=== PATIENT | female | born 1945 | race Caucasian/White ===

== ENCOUNTER 2020-10-25 14:45 | Inpatient (IN) ==
[2020-10-25 17:40] LABS: Basophils # 0.1 10*3/uL (0.0-0.2); Basophils % 0.8 % (0.0-0.8); Eosinophils # 0.2 10*3/uL (0.0-0.87); Eosinophils % 1.8 % (0.00-10.9); Hematocrit 30.6 VOL% (35.7-47.0); Hemoglobin 9.2 GM/DL (12.0-16.0); Immature Granulocytes % 0.8 %; Immature Granulocytes Absolute 0.11 #; Lymphocytes # 2.7 10*3/uL (1.4-4.0); Lymphocytes % 20.2 % (21.3-54.2); Mean Corpuscular HGB Conc 30.1 GM/DL (32-36); Mean Corpuscular Volume 80.3 FL (87-102); NRBC # 0.03 10*3/uL; Neutrophils % 67.4 % (38.7-73.9); Platelet Count 444 T/CUMM (130-400); Red Blood Count 3.81 MC/CUMM (3.8-5.5); Red Cell Distribution Width 14.6 % (9.3-17.3); White Blood Count 13.2 T/CUMM (4-12)
[2020-10-25 17:59] LABS: Albumin 4.4 G/DL (3.4-5.0); Bilirubin,Total 0.4 MG/DL (0.2-1.0); Calcium 9.6 MG/DL (8.5-10.1); Osmolality,Calculated 275.8 MOS/KG (273-304); Potassium 3.5 MMOL/L (3.5-5.1); Total Protein 8.5 G/DL (6.4-8.2)
[2020-10-25] MEDS ORDERED: MECLIZINE 25 MG TABLET PO STA (18:22)
[2020-10-25] MEDS ORDERED: ONDANSETRON 4 MG/2 ML VIAL IV STA (18:22)
[2020-10-25] MEDS ORDERED: SODIUM CHLORIDE 0.9% 500 ML IV STA (18:22)
[2020-10-25 18:41] LABS: Amylase 89 U/L (25-115)
[2020-10-25] MEDS ORDERED: PIPERACILLIN/TAZOBACTAM 3,375 MG in SODIUM CHLORIDE 0.9% 100 ML IV STA (19:30)
[2020-10-25] MEDS ORDERED: SODIUM CHLORIDE 0.9% 1,000 ML IV STA (19:30)
[2020-10-25] MEDS ORDERED: methylPREDNISolone SOD SUC 125 MG/2 ML VIAL IV STA (19:39)
[2020-10-25] MEDS ORDERED: ALBUTEROL/IPRATROPIUM 3 ML NEB RESP TX STA (19:39)
[2020-10-25] MEDS ORDERED: DEXTROSE 50% 25 GM/50 ML VIAL IV PRN ×2 (20:13)
[2020-10-25] MEDS ORDERED: GLUCAGON 1 MG VIAL IM PRN ×2 (20:13)
[2020-10-25] MEDS ORDERED: ALBUTEROL/IPRATROPIUM 3 ML NEB RESP TX PRN (20:13)
[2020-10-25] MEDS ORDERED: ONDANSETRON 4 MG/2 ML VIAL IV PRN (20:13)
[2020-10-25 20:25] LABS: Bilirubin,Urine Negative (Negative); Blood, Urine Negative (Negative); Calcium Oxalate Crystals,Urine Many /HPF (Few); Glucose,Urine (UA) Negative (Negative); Hyaline Casts,Urine 65 /LPF (0-3); Ketones,Urine Negative (Negative); Mucus,Urine Few /LPF (Occasional); Nitrite,Urine Negative (Negative); Protein,Urine Negative; RBC,Urine 7 /HPF (0-4); Squamous Epithelial Cell,Urine Occasional /HPF (0-10); Urine Appearance Slightly Hazy (Clear); Urine Color Yellow (Yellow); Urine Specific Gravity 1.014 (1.001-1.035); Urine Urobilinogen < 2.0 EU/DL (0.2-1.0)
[2020-10-25] MEDS ORDERED: cefTRIAXone 1,000 MG in SODIUM CHLORIDE 0.9% 100 ML IV SCH (21:00)
[2020-10-25] MEDS: INSULIN LISPRO 100 UNIT/ML SUBCUT SCH (23:11)
[2020-10-25] MEDS: ENOXAPARIN 40 MG/0.4 ML SYRINGE SUBCUT SCH (23:11)
[2020-10-25] MEDS: SIMVASTATIN 20 MG TABLET PO SCH (23:12)
[2020-10-25] MEDS: DONEPEZIL 10 MG TABLET PO SCH (23:12)
[2020-10-25] MEDS: SODIUM CHLOR 0.9% KCL 20 MEQ 20 MEQ/1,000 ML BAG IV SCH (23:14)
[2020-10-26] MEDS ORDERED: PHENOL 1.4% THROAT SPRAY 177 ML BOTTLE PO PRN (05:44)
[2020-10-26 06:14] LABS: Basophils % 0.4 % (0.0-0.8); Hematocrit 25.1 VOL% (35.7-47.0); Hemoglobin 7.5 GM/DL (12.0-16.0); Immature Granulocytes % 1.1 %; Immature Granulocytes Absolute 0.09 #; Lymphocytes # 0.5 10*3/uL (1.4-4.0); Lymphocytes % 5.4 % (21.3-54.2); Mean Corpuscular HGB Conc 29.9 GM/DL (32-36); Mean Corpuscular Volume 81.8 FL (87-102); Mean Platelet Volume 8.4 FL (9.6-12.0); Monocytes % 0.7 % (1.7-12.7); Neutrophils % 92.4 % (38.7-73.9); Platelet Count 321 T/CUMM (130-400); Red Blood Count 3.07 MC/CUMM (3.8-5.5); Red Cell Distribution Width 14.6 % (9.3-17.3); White Blood Count 8.4 T/CUMM (4-12)
[2020-10-26 06:37] LABS: Calcium 8.8 MG/DL (8.5-10.1); Osmolality,Calculated 281.5 MOS/KG (273-304); Potassium 4.3 MMOL/L (3.5-5.1)
[2020-10-26 06:39] LABS: Hypochromasia 2+; Lymphocytes 6 % (20-55); Microcytosis 1+; Platelet Estimate Adequate; Segmented Neutrophils 94 % (50-85); Total Cells Counted 100
[2020-10-26 08:33] LABS: Ferritin 9.7 ng/ml (8-252)
[2020-10-26] MEDS ORDERED: SODIUM CHLORIDE 0.9% 1,000 ML IV PRN (08:46)
[2020-10-26] MEDS ORDERED: hydroCHLOROthiazide 12.5 MG CAPSULE PO SCH (09:00)
[2020-10-26 09:24] LABS: Basophils % 0.2 % (0.0-0.8); Hematocrit 25.5 VOL% (35.7-47.0); Hemoglobin 7.5 GM/DL (12.0-16.0); Immature Granulocytes % 1.3 %; Immature Granulocytes Absolute 0.11 #; Lymphocytes # 0.6 10*3/uL (1.4-4.0); Lymphocytes % 6.7 % (21.3-54.2); Mean Corpuscular HGB Conc 29.4 GM/DL (32-36); Mean Corpuscular Volume 83.1 FL (87-102); Mean Platelet Volume 9.4 FL (9.6-12.0); Monocytes % 0.5 % (1.7-12.7); NRBC # 0.02 10*3/uL; Neutrophils % 91.3 % (38.7-73.9); Platelet Count 251 T/CUMM (130-400); Red Blood Count 3.07 MC/CUMM (3.8-5.5); Red Cell Distribution Width 14.6 % (9.3-17.3); White Blood Count 8.4 T/CUMM (4-12)
[2020-10-26 09:43] LABS: % Iron Saturation 4.1 % (18-50)
[2020-10-26 09:48] LABS: Lymphocytes 6 % (20-55); Platelet Estimate Adequate; Segmented Neutrophils 94 % (50-85); Total Cells Counted 100
[2020-10-26 09:49] LABS: Hypochromasia 1+; Microcytosis 1+
[2020-10-26 09:52] LABS: Folate 14.15 NG/ML (5.38-24.0); Vitamin B12 338 PG/ML (211-911)
[2020-10-26] MEDS: FENOFIBRATE 145 MG TABLET PO SCH (09:59)
[2020-10-26] MEDS: MAGNESIUM OXIDE 400 MG TABLET PO SCH (09:59)
[2020-10-26] MEDS: amLODIPine 5 MG TABLET PO SCH (09:59)
[2020-10-26] MEDS: predniSONE 5 MG TABLET PO SCH (09:59)
[2020-10-26] MEDS: PANTOPRAZOLE 40 MG TABLET PO SCH (09:59)
[2020-10-26] MEDS: INSULIN LISPRO 100 UNIT/ML SUBCUT SCH ×4 (10:00→22:02)
[2020-10-26] MEDS: POTASSIUM GLUCONATE 500 MG TABLET PO SCH (10:00)
[2020-10-26 10:27] LABS: Sedimentation Rate-Westergren 25 MM/HR (0-30)
[2020-10-26] MEDS: SODIUM CHLOR 0.9% KCL 20 MEQ 20 MEQ/1,000 ML BAG IV SCH ×2 (18:43→22:02)
[2020-10-26] MEDS: ENOXAPARIN 40 MG/0.4 ML SYRINGE SUBCUT SCH (22:02)
[2020-10-26] MEDS: FERROUS SULFATE 325 MG TABLET PO SCH (22:02)
[2020-10-26] MEDS: DONEPEZIL 10 MG TABLET PO SCH (22:02)
[2020-10-26] MEDS: SIMVASTATIN 20 MG TABLET PO SCH (22:02)
[2020-10-27] MEDS: SODIUM CHLOR 0.9% KCL 20 MEQ 20 MEQ/1,000 ML BAG IV SCH ×2 (00:21→06:19)
[2020-10-27 06:28] LABS: Basophils % 0.2 % (0.0-0.8); Hematocrit 32.2 VOL% (35.7-47.0); Immature Granulocytes % 1.6 %; Immature Granulocytes Absolute 0.28 #; Lymphocytes # 1.3 10*3/uL (1.4-4.0); Lymphocytes % 7.4 % (21.3-54.2); Mean Corpuscular HGB Conc 30.4 GM/DL (32-36); Mean Corpuscular Volume 83.2 FL (87-102); Mean Platelet Volume 8.7 FL (9.6-12.0); Monocytes % 7.3 % (1.7-12.7); NRBC # 0.06 10*3/uL; Neutrophils % 83.5 % (38.7-73.9); Red Cell Distribution Width 15.5 % (9.3-17.3)
[2020-10-27 06:29] LABS: Hemoglobin 9.8 GM/DL (12.0-16.0); Red Blood Count 3.87 MC/CUMM (3.8-5.5); White Blood Count 17.9 T/CUMM (4-12)
[2020-10-27 06:30] LABS: Platelet Count 361 T/CUMM (130-400)
[2020-10-27 06:38] LABS: Calcium 8.6 MG/DL (8.5-10.1); Osmolality,Calculated 277.5 MOS/KG (273-304); Potassium 4.1 MMOL/L (3.5-5.1)
[2020-10-27] MEDS: INSULIN LISPRO 100 UNIT/ML SUBCUT SCH ×4 (08:42→21:18)
[2020-10-27] MEDS: FERROUS SULFATE 325 MG TABLET PO SCH ×2 (09:54→21:17)
[2020-10-27] MEDS: POTASSIUM GLUCONATE 500 MG TABLET PO SCH (09:54)
[2020-10-27] MEDS: amLODIPine 5 MG TABLET PO SCH (09:54)
[2020-10-27] MEDS: MAGNESIUM OXIDE 400 MG TABLET PO SCH (09:54)
[2020-10-27] MEDS: predniSONE 5 MG TABLET PO SCH (09:54)
[2020-10-27] MEDS: PANTOPRAZOLE 40 MG TABLET PO SCH (09:54)
[2020-10-27] MEDS: FENOFIBRATE 145 MG TABLET PO SCH (09:54)
[2020-10-27 10:13] LABS: Hemoglobin A1 (Alkaline) 97.4 % (96.5-98.5); Hemoglobin A2 (Alkaline) 2.6 % (1.5-3.5)
[2020-10-27] MEDS: ACETAMINOPHEN 325 MG TABLET PO PRN (14:57)
[2020-10-27] MEDS: cefTRIAXone 1,000 MG VIAL IM SCH (21:17)
[2020-10-27] MEDS: DONEPEZIL 10 MG TABLET PO SCH (21:17)
[2020-10-27] MEDS: SIMVASTATIN 20 MG TABLET PO SCH (21:17)
[2020-10-28 06:42] LABS: Basophils % 0.2 % (0.0-0.8); Eosinophils % 0.3 % (0.00-10.9); Hematocrit 31.3 VOL% (35.7-47.0); Hemoglobin 9.8 GM/DL (12.0-16.0); Immature Granulocytes % 1.4 %; Immature Granulocytes Absolute 0.19 #; Lymphocytes # 2.1 10*3/uL (1.4-4.0); Lymphocytes % 14.9 % (21.3-54.2); Mean Corpuscular HGB Conc 31.3 GM/DL (32-36); Mean Corpuscular Volume 80.5 FL (87-102); Mean Platelet Volume 8.3 FL (9.6-12.0); Monocytes % 12.1 % (1.7-12.7); NRBC # 0.04 10*3/uL; Neutrophils % 71.1 % (38.7-73.9); Platelet Count 272 T/CUMM (130-400); Red Blood Count 3.89 MC/CUMM (3.8-5.5); Red Cell Distribution Width 15.6 % (9.3-17.3)
[2020-10-28 07:05] LABS: Calcium 8.5 MG/DL (8.5-10.1); Osmolality,Calculated 272.7 MOS/KG (273-304); Potassium 3.4 MMOL/L (3.5-5.1)
[2020-10-28] MEDS: INSULIN LISPRO 100 UNIT/ML SUBCUT SCH ×4 (08:11→20:44)
[2020-10-28] MEDS ORDERED: POTASSIUM CHLORIDE 20 MEQ TABLET PO ONE (09:00)
[2020-10-28] MEDS: POTASSIUM GLUCONATE 500 MG TABLET PO SCH (10:00)
[2020-10-28] MEDS: MAGNESIUM OXIDE 400 MG TABLET PO SCH (10:00)
[2020-10-28] MEDS: MECLIZINE 25 MG TABLET PO SCH ×3 (10:00→20:40)
[2020-10-28] MEDS: predniSONE 5 MG TABLET PO SCH (10:00)
[2020-10-28] MEDS: FENOFIBRATE 145 MG TABLET PO SCH (10:00)
[2020-10-28] MEDS: FERROUS SULFATE 325 MG TABLET PO SCH ×2 (10:01→20:40)
[2020-10-28] MEDS: ACETAMINOPHEN 325 MG TABLET PO PRN ×2 (10:01→18:09)
[2020-10-28] MEDS: amLODIPine 5 MG TABLET PO SCH (10:01)
[2020-10-28] MEDS: PANTOPRAZOLE 40 MG TABLET PO SCH (10:01)
[2020-10-28] MEDS: ALBUTEROL/IPRATROPIUM 3 ML NEB RESP TX SCH ×2 (14:00→20:28)
[2020-10-28] MEDS: CLINDAMYCIN INJ 300 MG/50 ML PREMIX IV SCH (18:09)
[2020-10-28] MEDS: SIMVASTATIN 20 MG TABLET PO SCH (20:39)
[2020-10-28] MEDS: cefTRIAXone 1,000 MG VIAL IM SCH (20:39)
[2020-10-28] MEDS: DONEPEZIL 10 MG TABLET PO SCH (20:39)
[2020-10-28] MEDS: MONTELUKAST 10 MG TABLET PO SCH (20:40)
[2020-10-29] MEDS: CLINDAMYCIN INJ 300 MG/50 ML PREMIX IV SCH ×4 (00:13→17:59)
[2020-10-29] MEDS: ALBUTEROL/IPRATROPIUM 3 ML NEB RESP TX SCH ×7 (00:33→23:43)
[2020-10-29 05:03] LABS: Basophils % 0.3 % (0.0-0.8); Eosinophils # 0.1 10*3/uL (0.0-0.87); Eosinophils % 0.7 % (0.00-10.9); Hematocrit 32.8 VOL% (35.7-47.0); Hemoglobin 10.1 GM/DL (12.0-16.0); Immature Granulocytes Absolute 0.11 #; Lymphocytes # 2.3 10*3/uL (1.4-4.0); Lymphocytes % 20.5 % (21.3-54.2); Mean Corpuscular HGB Conc 30.8 GM/DL (32-36); Mean Corpuscular Volume 81.8 FL (87-102); Mean Platelet Volume 8.6 FL (9.6-12.0); Monocytes % 10.8 % (1.7-12.7); Neutrophils % 66.7 % (38.7-73.9); Platelet Count 256 T/CUMM (130-400); Red Blood Count 4.01 MC/CUMM (3.8-5.5); Red Cell Distribution Width 15.6 % (9.3-17.3)
[2020-10-29 05:19] LABS: Calcium 8.6 MG/DL (8.5-10.1); Osmolality,Calculated 277.4 MOS/KG (273-304); Potassium 3.2 MMOL/L (3.5-5.1)
[2020-10-29] MEDS ORDERED: POTASSIUM CHLORIDE 20 MEQ TABLET PO ONE (07:45)
[2020-10-29] MEDS: INSULIN LISPRO 100 UNIT/ML SUBCUT SCH ×4 (09:02→21:25)
[2020-10-29] MEDS: FENOFIBRATE 145 MG TABLET PO SCH (09:17)
[2020-10-29] MEDS: POTASSIUM GLUCONATE 500 MG TABLET PO SCH (09:17)
[2020-10-29] MEDS: PANTOPRAZOLE 40 MG TABLET PO SCH (09:17)
[2020-10-29] MEDS: MONTELUKAST 10 MG TABLET PO SCH (09:17)
[2020-10-29] MEDS: predniSONE 5 MG TABLET PO SCH (09:18)
[2020-10-29] MEDS: MAGNESIUM OXIDE 400 MG TABLET PO SCH (09:18)
[2020-10-29] MEDS: amLODIPine 5 MG TABLET PO SCH (09:18)
[2020-10-29] MEDS: FERROUS SULFATE 325 MG TABLET PO SCH ×2 (09:18→21:25)
[2020-10-29] MEDS: MECLIZINE 25 MG TABLET PO SCH ×3 (09:18→21:18)
[2020-10-29] MEDS ORDERED: LIDOCAINE 1% 20 ML VIAL IM PRN (21:06)
[2020-10-29] MEDS: SIMVASTATIN 20 MG TABLET PO SCH (21:18)
[2020-10-29] MEDS: cefTRIAXone 1,000 MG VIAL IM SCH (21:22)
[2020-10-29] MEDS: DONEPEZIL 10 MG TABLET PO SCH (21:25)
[2020-10-30] MEDS: CLINDAMYCIN INJ 300 MG/50 ML PREMIX IV SCH ×4 (00:17→21:30)
[2020-10-30] MEDS: ALBUTEROL/IPRATROPIUM 3 ML NEB RESP TX SCH ×6 (03:00→23:00)
[2020-10-30 04:42] LABS: Basophils # 0.1 10*3/uL (0.0-0.2); Basophils % 0.5 % (0.0-0.8); Eosinophils # 0.2 10*3/uL (0.0-0.87); Eosinophils % 2.3 % (0.00-10.9); Hematocrit 31.2 VOL% (35.7-47.0); Hemoglobin 9.6 GM/DL (12.0-16.0); Immature Granulocytes % 0.7 %; Immature Granulocytes Absolute 0.07 #; Lymphocytes # 2.2 10*3/uL (1.4-4.0); Lymphocytes % 22.7 % (21.3-54.2); Mean Corpuscular HGB Conc 30.8 GM/DL (32-36); Mean Corpuscular Volume 82.1 FL (87-102); Mean Platelet Volume 8.8 FL (9.6-12.0); Monocytes % 10.6 % (1.7-12.7); Neutrophils % 63.2 % (38.7-73.9); Platelet Count 267 T/CUMM (130-400); Red Cell Distribution Width 15.6 % (9.3-17.3); White Blood Count 9.6 T/CUMM (4-12)
[2020-10-30 05:03] LABS: Calcium 8.4 MG/DL (8.5-10.1); Osmolality,Calculated 277.4 MOS/KG (273-304); Potassium 3.5 MMOL/L (3.5-5.1)
[2020-10-30] MEDS: INSULIN LISPRO 100 UNIT/ML SUBCUT SCH ×4 (08:22→22:38)
[2020-10-30] MEDS: MAGNESIUM OXIDE 400 MG TABLET PO SCH (09:56)
[2020-10-30] MEDS: FENOFIBRATE 145 MG TABLET PO SCH (09:56)
[2020-10-30] MEDS: predniSONE 5 MG TABLET PO SCH (09:57)
[2020-10-30] MEDS: MECLIZINE 25 MG TABLET PO SCH ×3 (09:57→21:30)
[2020-10-30] MEDS: POTASSIUM GLUCONATE 500 MG TABLET PO SCH (09:57)
[2020-10-30] MEDS: PANTOPRAZOLE 40 MG TABLET PO SCH (09:57)
[2020-10-30] MEDS: FERROUS SULFATE 325 MG TABLET PO SCH ×2 (09:57→21:31)
[2020-10-30] MEDS: amLODIPine 5 MG TABLET PO SCH (09:57)
[2020-10-30] MEDS: MONTELUKAST 10 MG TABLET PO SCH (09:57)
[2020-10-30] MEDS: SIMVASTATIN 20 MG TABLET PO SCH (21:30)
[2020-10-30] MEDS: DONEPEZIL 10 MG TABLET PO SCH (21:31)
[2020-10-30] MEDS: cefTRIAXone 1,000 MG VIAL IM SCH (21:33)
[2020-10-31] MEDS: ALBUTEROL/IPRATROPIUM 3 ML NEB RESP TX SCH ×3 (03:00→11:07)
[2020-10-31] MEDS: ACETAMINOPHEN 325 MG TABLET PO PRN (03:35)
[2020-10-31] MEDS: CLINDAMYCIN INJ 300 MG/50 ML PREMIX IV SCH ×2 (03:36→08:34)
[2020-10-31 04:46] LABS: Basophils % 0.4 % (0.0-0.8); Eosinophils # 0.3 10*3/uL (0.0-0.87); Eosinophils % 3.3 % (0.00-10.9); Hematocrit 30.6 VOL% (35.7-47.0); Hemoglobin 9.6 GM/DL (12.0-16.0); Immature Granulocytes % 0.7 %; Immature Granulocytes Absolute 0.07 #; Lymphocytes # 2.3 10*3/uL (1.4-4.0); Mean Corpuscular HGB Conc 31.4 GM/DL (32-36); Mean Corpuscular Volume 81.4 FL (87-102); Mean Platelet Volume 8.5 FL (9.6-12.0); Monocytes % 10.3 % (1.7-12.7); Neutrophils % 61.3 % (38.7-73.9); Platelet Count 251 T/CUMM (130-400); Red Blood Count 3.76 MC/CUMM (3.8-5.5); Red Cell Distribution Width 16.3 % (9.3-17.3); White Blood Count 9.7 T/CUMM (4-12)
[2020-10-31 04:59] LABS: Calcium 8.6 MG/DL (8.5-10.1); Osmolality,Calculated 281.1 MOS/KG (273-304); Potassium 3.5 MMOL/L (3.5-5.1)
[2020-10-31] MEDS: POTASSIUM GLUCONATE 500 MG TABLET PO SCH (08:34)
[2020-10-31] MEDS: MAGNESIUM OXIDE 400 MG TABLET PO SCH (08:34)
[2020-10-31] MEDS: MECLIZINE 25 MG TABLET PO SCH (08:34)
[2020-10-31] MEDS: FENOFIBRATE 145 MG TABLET PO SCH (08:34)
[2020-10-31] MEDS: predniSONE 5 MG TABLET PO SCH (08:34)
[2020-10-31] MEDS: MONTELUKAST 10 MG TABLET PO SCH (08:34)
[2020-10-31] MEDS: PANTOPRAZOLE 40 MG TABLET PO SCH (08:34)
[2020-10-31] MEDS: INSULIN LISPRO 100 UNIT/ML SUBCUT SCH ×2 (08:35→11:53)
[2020-10-31] MEDS: amLODIPine 5 MG TABLET PO SCH (08:35)
[2020-10-31] MEDS: FERROUS SULFATE 325 MG TABLET PO SCH (08:35)
[2020-10-31 11:37] VITALS: BP 122/42
[2020-11-01] MEDS ORDERED: ERGOCALCIFEROL 50,000 UNIT CAPSULE PO SCH (09:00)
== END 2020-10-31 13:20 | disposition home or self-care (01) | DRG 391 ==
LOC: N.EDINP 14:45 → N.ED 14:45 → N.4E 22:09 → SUATTDRO 10-26 13:30
PROVIDERS: ADMIT Internal Medicine; ATTEND Student in an Organized Health Care Education/Training Program

== ENCOUNTER 2020-11-15 16:55 | Inpatient (IN) ==
[2020-11-15] MEDS ORDERED: ALBUTEROL/IPRATROPIUM 3 ML NEB RESP TX STA (17:54)
[2020-11-15] MEDS ORDERED: methylPREDNISolone SOD SUC 40 MG/1 ML VIAL IV STA (17:54)
[2020-11-15] MEDS ORDERED: SODIUM CHLORIDE 0.9% 500 ML IV STA (17:54)
[2020-11-15] MEDS ORDERED: methylPREDNISolone SOD SUC 125 MG/2 ML VIAL ONE (18:02)
[2020-11-15 18:18] LABS: Albumin 3.5 G/DL (3.4-5.0); Bilirubin,Total 0.4 MG/DL (0.2-1.0); Calcium 8.5 MG/DL (8.5-10.1); Osmolality,Calculated 277.4 MOS/KG (273-304); Potassium 2.8 MMOL/L (3.5-5.1); Total Protein 7.5 G/DL (6.4-8.2)
[2020-11-15 18:26] LABS: Basophils % 0.7 % (0.0-0.8); Eosinophils # 0.1 10*3/uL (0.0-0.87); Eosinophils % 2.1 % (0.00-10.9); Hematocrit 32.1 VOL% (35.7-47.0); Hemoglobin 10.5 GM/DL (12.0-16.0); Immature Granulocytes % 0.7 %; Immature Granulocytes Absolute 0.04 #; Lymphocytes # 1.7 10*3/uL (1.4-4.0); Lymphocytes % 29.7 % (21.3-54.2); Mean Corpuscular HGB Conc 32.7 GM/DL (32-36); Mean Corpuscular Volume 81.3 FL (87-102); Mean Platelet Volume 8.9 FL (9.6-12.0); Monocytes % 15.1 % (1.7-12.7); Neutrophils % 51.7 % (38.7-73.9); Platelet Count 298 T/CUMM (130-400); Red Blood Count 3.95 MC/CUMM (3.8-5.5); Red Cell Distribution Width 17.6 % (9.3-17.3); White Blood Count 5.7 T/CUMM (4-12)
[2020-11-15 18:30] LABS: Bacteria,Urine Occasional /HPF (Few); Bilirubin,Urine Negative (Negative); Blood, Urine Moderate mg/dL (Negative); Glucose,Urine (UA) Negative (Negative); Hyaline Casts,Urine 15 /LPF (0-3); Ketones,Urine Negative (Negative); Mucus,Urine Occasional /LPF (Occasional); Nitrite,Urine Negative (Negative); Protein,Urine 100 MG/DL; Urine Appearance CLEAR (Clear); Urine Color Yellow (Yellow); Urine Specific Gravity 1.016 (1.001-1.035); Urine Urobilinogen < 2.0 EU/DL (0.2-1.0)
[2020-11-15] MEDS ORDERED: ALBUTEROL 2.5 MG/3 ML NEB RESP TX PRN (20:05)
[2020-11-15] MEDS ORDERED: GLUCAGON 1 MG VIAL IM PRN (20:13)
[2020-11-15] MEDS ORDERED: DEXTROSE 50% 25 GM/50 ML VIAL IV PRN (20:13)
[2020-11-15] MEDS ORDERED: ACETAMINOPHEN 325 MG TABLET PO PRN (20:14)
[2020-11-15] MEDS ORDERED: ONDANSETRON 4 MG/2 ML VIAL IV PRN (20:14)
[2020-11-15] MEDS ORDERED: DOCUSATE SODIUM 100 MG CAPSULE PO PRN (20:14)
[2020-11-15] MEDS ORDERED: MAGNESIUM SULF RIDER 2 GM/50 ML PREMIX IV PRN (20:26)
[2020-11-15] MEDS ORDERED: POTASSIUM CHLORIDE 20 MEQ TABLET PO STA (20:26)
[2020-11-15] MEDS ORDERED: MAGNESIUM SULF RIDER 4 GM/100 ML PREMIX IV PRN (20:26)
[2020-11-15] MEDS ORDERED: guaiFENesin/DM ER 600-30 MG TABLET PO SCH (21:00)
[2020-11-15] MEDS: ENOXAPARIN 40 MG/0.4 ML SYRINGE SUBCUT SCH (23:40)
[2020-11-15] MEDS: INSULIN LISPRO 100 UNIT/ML SUBCUT SCH (23:40)
[2020-11-15] MEDS: methylPREDNISolone SOD SUC 40 MG/1 ML VIAL IV SCH (23:41)
[2020-11-15] MEDS: PIPERACILLIN/TAZOBACTAM 3,375 MG in SODIUM CHLORIDE 0.9% 100 ML IV SCH (23:43)
[2020-11-15] MEDS: DONEPEZIL 10 MG TABLET PO SCH (23:45)
[2020-11-15] MEDS: clonazePAM 0.5 MG TABLET PO SCH (23:45)
[2020-11-16] MEDS: ALBUTEROL/IPRATROPIUM 3 ML NEB RESP TX SCH ×4 (00:40→20:16)
[2020-11-16 04:15] LABS: Hematocrit 30.8 VOL% (35.7-47.0); Immature Granulocytes % 1.7 %; Immature Granulocytes Absolute 0.05 #; Lymphocytes # 0.6 10*3/uL (1.4-4.0); Lymphocytes % 19.5 % (21.3-54.2); Mean Corpuscular HGB Conc 32.5 GM/DL (32-36); Mean Corpuscular Volume 80.6 FL (87-102); Mean Platelet Volume 8.3 FL (9.6-12.0); Monocytes % 2.7 % (1.7-12.7); Neutrophils % 76.1 % (38.7-73.9); Platelet Count 274 T/CUMM (130-400); Red Blood Count 3.82 MC/CUMM (3.8-5.5); Red Cell Distribution Width 17.4 % (9.3-17.3); White Blood Count 2.9 T/CUMM (4-12)
[2020-11-16 04:29] LABS: Calcium 8.5 MG/DL (8.5-10.1); Osmolality,Calculated 278.4 MOS/KG (273-304); Potassium 3.9 MMOL/L (3.5-5.1)
[2020-11-16 04:35] LABS: Eosinophils 1 % (0-10); Hypochromasia 1+; Lymphocytes 15 % (20-55); Microcytosis 1+; Platelet Estimate Adequate; Segmented Neutrophils 83 % (50-85); Total Cells Counted 100
[2020-11-16] MEDS: methylPREDNISolone SOD SUC 40 MG/1 ML VIAL IV SCH ×3 (06:30→21:50)
[2020-11-16] MEDS: PIPERACILLIN/TAZOBACTAM 3,375 MG in SODIUM CHLORIDE 0.9% 100 ML IV SCH ×3 (06:32→21:55)
[2020-11-16] MEDS: INSULIN LISPRO 100 UNIT/ML SUBCUT SCH ×4 (07:41→21:51)
[2020-11-16] MEDS: clonazePAM 0.5 MG TABLET PO SCH ×2 (09:00→21:49)
[2020-11-16] MEDS: hydroCHLOROthiazide 25 MG TABLET PO SCH (09:00)
[2020-11-16] MEDS: amLODIPine 5 MG TABLET PO SCH (09:00)
[2020-11-16] MEDS: FENOFIBRATE 145 MG TABLET PO SCH (09:00)
[2020-11-16] MEDS: MONTELUKAST 10 MG TABLET PO SCH (09:00)
[2020-11-16] MEDS: PANTOPRAZOLE 40 MG TABLET PO SCH (09:00)
[2020-11-16] MEDS: SIMVASTATIN 20 MG TABLET PO SCH (09:00)
[2020-11-16] MEDS: POLYETHYLENE GLYCOL POWDER 17 GM PACK PO SCH (09:00)
[2020-11-16] MEDS: DOCUSATE SODIUM 100 MG CAPSULE PO SCH ×2 (09:00→21:49)
[2020-11-16] MEDS ORDERED: VANCOMYCIN INJ 1,000 MG in SODIUM CHLORIDE 0.9% 250 ML IV SCH (11:00)
[2020-11-16] MEDS ORDERED: VANCOMYCIN 1,000 MG VIAL ONE (11:08)
[2020-11-16] MEDS: AMINOPHYLLINE 250 MG in SODIUM CHLORIDE 0.9% 100 ML IV ONE ×2 (12:46→14:45)
[2020-11-16] MEDS ORDERED: VANCOMYCIN INJ 500 MG in SODIUM CHLORIDE 0.9% 100 ML IV ONE (13:00)
[2020-11-16] MEDS ORDERED: AMINOPHYLLINE 500 MG in SODIUM CHLORIDE 0.9% 480 ML IV SCH (17:00)
[2020-11-16] MEDS: DONEPEZIL 10 MG TABLET PO SCH (21:49)
[2020-11-16] MEDS: ENOXAPARIN 40 MG/0.4 ML SYRINGE SUBCUT SCH (21:50)
[2020-11-17] MEDS: ALBUTEROL/IPRATROPIUM 3 ML NEB RESP TX SCH ×4 (00:21→19:32)
[2020-11-17] MEDS: VANCOMYCIN INJ 1,000 MG in SODIUM CHLORIDE 0.9% 250 ML IV SCH ×2 (01:09→16:05)
[2020-11-17] MEDS: PIPERACILLIN/TAZOBACTAM 3,375 MG in SODIUM CHLORIDE 0.9% 100 ML IV SCH ×3 (04:35→20:54)
[2020-11-17] MEDS: methylPREDNISolone SOD SUC 40 MG/1 ML VIAL IV SCH ×3 (04:35→17:39)
[2020-11-17 06:27] LABS: Hematocrit 27.2 VOL% (35.7-47.0); Hemoglobin 8.5 GM/DL (12.0-16.0); Immature Granulocytes % 0.9 %; Immature Granulocytes Absolute 0.06 #; Lymphocytes # 0.7 10*3/uL (1.4-4.0); Mean Corpuscular HGB Conc 31.3 GM/DL (32-36); Mean Corpuscular Volume 81.9 FL (87-102); Mean Platelet Volume 8.9 FL (9.6-12.0); Monocytes % 3.2 % (1.7-12.7); NRBC # 0.02 10*3/uL; Neutrophils % 85.9 % (38.7-73.9); Platelet Count 285 T/CUMM (130-400); Red Blood Count 3.32 MC/CUMM (3.8-5.5); Red Cell Distribution Width 18.2 % (9.3-17.3)
[2020-11-17 06:51] LABS: Calcium 8.6 MG/DL (8.5-10.1); Osmolality,Calculated 287.1 MOS/KG (273-304)
[2020-11-17] MEDS: hydroCHLOROthiazide 25 MG TABLET PO SCH (09:03)
[2020-11-17] MEDS: clonazePAM 0.5 MG TABLET PO SCH ×2 (09:03→20:53)
[2020-11-17] MEDS: amLODIPine 5 MG TABLET PO SCH (09:03)
[2020-11-17] MEDS: POLYETHYLENE GLYCOL POWDER 17 GM PACK PO SCH (09:04)
[2020-11-17] MEDS: POTASSIUM CHLORIDE 20 MEQ TABLET PO PRN ×4 (09:04→17:39)
[2020-11-17] MEDS: FENOFIBRATE 145 MG TABLET PO SCH (09:04)
[2020-11-17] MEDS: PANTOPRAZOLE 40 MG TABLET PO SCH (09:04)
[2020-11-17] MEDS: SIMVASTATIN 20 MG TABLET PO SCH (09:04)
[2020-11-17] MEDS: INSULIN LISPRO 100 UNIT/ML SUBCUT SCH ×3 (09:04→17:39)
[2020-11-17] MEDS: MONTELUKAST 10 MG TABLET PO SCH (09:04)
[2020-11-17] MEDS: DOCUSATE SODIUM 100 MG CAPSULE PO SCH ×2 (09:04→20:53)
[2020-11-17] MEDS: THEOPHYLLINE ER (24 HR) 200 MG CAPSULE PO SCH (12:00)
[2020-11-17] MEDS: DIPHENOXYLATE/ATROPINE 2.5-0.025 MG TABLET PO PRN (17:34)
[2020-11-17] MEDS ORDERED: ERGOCALCIFEROL 50,000 UNIT CAPSULE PO SCH (19:31)
[2020-11-17] MEDS: DONEPEZIL 10 MG TABLET PO SCH (20:53)
[2020-11-17] MEDS: ENOXAPARIN 40 MG/0.4 ML SYRINGE SUBCUT SCH (20:54)
[2020-11-18] MEDS: ALBUTEROL/IPRATROPIUM 3 ML NEB RESP TX SCH ×4 (00:11→19:52)
[2020-11-18] MEDS: VANCOMYCIN INJ 1,000 MG in SODIUM CHLORIDE 0.9% 250 ML IV SCH ×2 (01:07→16:07)
[2020-11-18] MEDS: INSULIN LISPRO 100 UNIT/ML SUBCUT SCH ×5 (03:03→21:46)
[2020-11-18] MEDS: methylPREDNISolone SOD SUC 40 MG/1 ML VIAL IV SCH ×3 (03:26→17:42)
[2020-11-18] MEDS: PIPERACILLIN/TAZOBACTAM 3,375 MG in SODIUM CHLORIDE 0.9% 100 ML IV SCH ×3 (04:15→20:46)
[2020-11-18 08:08] LABS: Hematocrit 30.3 VOL% (35.7-47.0); Hemoglobin 9.3 GM/DL (12.0-16.0); Immature Granulocytes % 1.1 %; Immature Granulocytes Absolute 0.08 #; Lymphocytes # 0.9 10*3/uL (1.4-4.0); Lymphocytes % 11.6 % (21.3-54.2); Mean Corpuscular HGB Conc 30.7 GM/DL (32-36); Mean Corpuscular Volume 83.2 FL (87-102); Monocytes % 3.8 % (1.7-12.7); Neutrophils % 83.5 % (38.7-73.9); Platelet Count 310 T/CUMM (130-400); Red Blood Count 3.64 MC/CUMM (3.8-5.5); Red Cell Distribution Width 18.5 % (9.3-17.3); White Blood Count 7.6 T/CUMM (4-12)
[2020-11-18 08:25] LABS: Calcium 8.6 MG/DL (8.5-10.1); Osmolality,Calculated 286.1 MOS/KG (273-304); Potassium 3.9 MMOL/L (3.5-5.1)
[2020-11-18] MEDS: POLYETHYLENE GLYCOL POWDER 17 GM PACK PO SCH (08:44)
[2020-11-18] MEDS: DOCUSATE SODIUM 100 MG CAPSULE PO SCH ×2 (08:45→21:45)
[2020-11-18] MEDS: hydroCHLOROthiazide 25 MG TABLET PO SCH (08:45)
[2020-11-18] MEDS: clonazePAM 0.5 MG TABLET PO SCH ×2 (08:46→20:47)
[2020-11-18] MEDS: THEOPHYLLINE ER (24 HR) 200 MG CAPSULE PO SCH (08:47)
[2020-11-18] MEDS: FENOFIBRATE 145 MG TABLET PO SCH (08:47)
[2020-11-18] MEDS: MONTELUKAST 10 MG TABLET PO SCH (08:48)
[2020-11-18] MEDS: SIMVASTATIN 20 MG TABLET PO SCH (08:48)
[2020-11-18] MEDS: PANTOPRAZOLE 40 MG TABLET PO SCH (08:48)
[2020-11-18] MEDS: amLODIPine 5 MG TABLET PO SCH (08:48)
[2020-11-18] MEDS: CLORAZEPATE 3.75 MG TABLET PO SCH ×2 (16:25→20:47)
[2020-11-18] MEDS: DIPHENOXYLATE/ATROPINE 2.5-0.025 MG TABLET PO PRN (20:47)
[2020-11-18] MEDS: DONEPEZIL 10 MG TABLET PO SCH (20:47)
[2020-11-18] MEDS: ENOXAPARIN 40 MG/0.4 ML SYRINGE SUBCUT SCH (20:47)
[2020-11-19] MEDS: ALBUTEROL/IPRATROPIUM 3 ML NEB RESP TX SCH ×3 (02:16→13:20)
[2020-11-19] MEDS: VANCOMYCIN INJ 1,000 MG in SODIUM CHLORIDE 0.9% 250 ML IV SCH (03:08)
[2020-11-19] MEDS: methylPREDNISolone SOD SUC 40 MG/1 ML VIAL IV SCH ×2 (03:09→09:59)
[2020-11-19] MEDS: PIPERACILLIN/TAZOBACTAM 3,375 MG in SODIUM CHLORIDE 0.9% 100 ML IV SCH ×2 (04:34→12:54)
[2020-11-19 05:21] LABS: Hematocrit 26.8 VOL% (35.7-47.0); Hemoglobin 8.3 GM/DL (12.0-16.0); Immature Granulocytes % 1.2 %; Immature Granulocytes Absolute 0.07 #; Lymphocytes # 0.9 10*3/uL (1.4-4.0); Lymphocytes % 15.1 % (21.3-54.2); Mean Corpuscular Volume 83.2 FL (87-102); Mean Platelet Volume 9.1 FL (9.6-12.0); Monocytes % 6.9 % (1.7-12.7); NRBC # 0.02 10*3/uL; Neutrophils % 76.8 % (38.7-73.9); Platelet Count 277 T/CUMM (130-400); Red Blood Count 3.22 MC/CUMM (3.8-5.5); Red Cell Distribution Width 18.1 % (9.3-17.3)
[2020-11-19 05:48] LABS: Potassium 3.5 MMOL/L (3.5-5.1)
[2020-11-19] MEDS: INSULIN LISPRO 100 UNIT/ML SUBCUT SCH ×2 (07:42→12:52)
[2020-11-19] MEDS: DIPHENOXYLATE/ATROPINE 2.5-0.025 MG TABLET PO PRN (08:30)
[2020-11-19] MEDS: SIMVASTATIN 20 MG TABLET PO SCH (08:30)
[2020-11-19] MEDS: clonazePAM 0.5 MG TABLET PO SCH (08:30)
[2020-11-19] MEDS: PANTOPRAZOLE 40 MG TABLET PO SCH (08:30)
[2020-11-19] MEDS: hydroCHLOROthiazide 25 MG TABLET PO SCH (08:30)
[2020-11-19] MEDS: amLODIPine 5 MG TABLET PO SCH (08:30)
[2020-11-19] MEDS: THEOPHYLLINE ER (24 HR) 200 MG CAPSULE PO SCH (08:30)
[2020-11-19] MEDS: MONTELUKAST 10 MG TABLET PO SCH (08:30)
[2020-11-19] MEDS: POLYETHYLENE GLYCOL POWDER 17 GM PACK PO SCH (08:31)
[2020-11-19] MEDS: CLORAZEPATE 3.75 MG TABLET PO SCH (08:31)
[2020-11-19] MEDS: FENOFIBRATE 145 MG TABLET PO SCH (08:31)
[2020-11-19] MEDS: DOCUSATE SODIUM 100 MG CAPSULE PO SCH (08:31)
[2020-11-19] MEDS ORDERED: CHOLESTYRAMINE 4 GM PACK PO SCH (11:30)
[2020-11-19 11:39] VITALS: BP 112/49
[2020-11-19] MEDS ORDERED: ALBUTEROL 2 MG TABLET PO SCH (14:00)
[2020-11-20 00:06] LABS: Specimen Source NASOPHARYNGEAL SWAB
== END 2020-11-19 14:43 | disposition swing bed (61) | DRG 190 ==
LOC: N.ED 16:55 → N.EDINP 16:55 → SUATTDRO 19:31 → N.5E 11-16 13:46
PROVIDERS: ADMIT Internal Medicine; ATTEND Internal Medicine

== ENCOUNTER 2021-01-08 09:53 | Inpatient (IN) ==
[2021-01-08] MEDS ORDERED: methylPREDNISolone SOD SUC 125 MG/2 ML VIAL IV STA (10:35)
[2021-01-08 11:08] LABS: ABG Base Excess 2.9 MMOL/L (-2.5-2.5); ABG Oxygen Saturation 94.3 % (95-100); ABG PCO2 36.5 MM HG (35-48); ABG PO2 65.4 MM HG (80-95); ABG TCO2 24.6 MMOL/L (23-27)
[2021-01-08 11:34] LABS: Basophils # 0.1 10*3/uL (0.0-0.2); Basophils % 0.8 % (0.0-0.8); Eosinophils # 0.2 10*3/uL (0.0-0.87); Eosinophils % 1.9 % (0.00-10.9); Hematocrit 25.8 VOL% (35.7-47.0); Hemoglobin 8.1 GM/DL (12.0-16.0); Immature Granulocytes % 0.7 %; Immature Granulocytes Absolute 0.07 #; Lymphocytes # 1.4 10*3/uL (1.4-4.0); Lymphocytes % 13.6 % (21.3-54.2); Mean Corpuscular HGB Conc 31.4 GM/DL (32-36); Mean Corpuscular Volume 82.2 FL (87-102); Mean Platelet Volume 8.5 FL (9.6-12.0); Monocytes % 9.1 % (1.7-12.7); Neutrophils % 73.9 % (38.7-73.9); Platelet Count 454 T/CUMM (130-400); Red Blood Count 3.14 MC/CUMM (3.8-5.5); Red Cell Distribution Width 17.2 % (9.3-17.3)
[2021-01-08 12:05] LABS: Albumin 3.9 G/DL (3.4-5.0); Bilirubin,Total 0.5 MG/DL (0.20-1.00); Calcium 8.7 MG/DL (8.5-10.1); Osmolality,Calculated 270.1 MOS/KG (273-304); Potassium 2.8 MMOL/L (3.5-5.1); Total Protein 7.3 G/DL (6.4-8.2)
[2021-01-08] MEDS ORDERED: ALBUTEROL 2.5 MG/3 ML NEB RESP TX STA (13:06)
[2021-01-08] MEDS ORDERED: DEXTROSE 50% 25 GM/50 ML VIAL IV PRN (13:30)
[2021-01-08] MEDS ORDERED: ONDANSETRON 4 MG/2 ML VIAL IV PRN (13:30)
[2021-01-08] MEDS ORDERED: GLUCAGON 1 MG VIAL IM PRN (13:30)
[2021-01-08] MEDS ORDERED: DEXTROSE 5% NACL 0.9% 1,000 ML IV SCH (13:30)
[2021-01-08] MEDS ORDERED: ACETAMINOPHEN 325 MG TABLET PO PRN (13:30)
[2021-01-08] MEDS ORDERED: DOCUSATE SODIUM 100 MG CAPSULE PO PRN (13:30)
[2021-01-08] MEDS ORDERED: POTASSIUM CHLORIDE 20 MEQ TABLET PO ONE (15:42)
[2021-01-08] MEDS: LEVOFLOXACIN INJ 500 MG/100 ML PREMIX IV SCH (16:03)
[2021-01-08] MEDS: POTASSIUM CHLORIDE 20 MEQ TABLET PO SCH ×2 (16:04→21:12)
[2021-01-08] MEDS ORDERED: FLUTICASONE 50 MCG NASAL SPRAY 16 GM BOTTLE BOTH NARES PRN (16:15)
[2021-01-08] MEDS: ALBUTEROL/IPRATROPIUM 3 ML NEB RESP TX SCH (19:42)
[2021-01-08] MEDS: DONEPEZIL 10 MG TABLET PO SCH (21:12)
[2021-01-08] MEDS: guaiFENesin/DM ER 600-30 MG TABLET PO SCH (21:12)
[2021-01-08] MEDS: SIMVASTATIN 20 MG TABLET PO SCH (21:13)
[2021-01-08] MEDS: methylPREDNISolone SOD SUC 40 MG/1 ML VIAL IV SCH (21:13)
[2021-01-08] MEDS: MECLIZINE 25 MG TABLET PO PRN (21:14)
[2021-01-08] MEDS: INSULIN LISPRO 100 UNIT/ML SUBCUT SCH (22:09)
[2021-01-09] MEDS: ALBUTEROL/IPRATROPIUM 3 ML NEB RESP TX SCH ×4 (00:10→19:55)
[2021-01-09 05:42] LABS: Basophils % 0.2 % (0.0-0.8); Hematocrit 26.7 VOL% (35.7-47.0); Hemoglobin 8.2 GM/DL (12.0-16.0); Immature Granulocytes % 1.8 %; Immature Granulocytes Absolute 0.15 #; Lymphocytes # 0.8 10*3/uL (1.4-4.0); Lymphocytes % 8.9 % (21.3-54.2); Mean Corpuscular HGB Conc 30.7 GM/DL (32-36); Mean Corpuscular Volume 83.4 FL (87-102); Mean Platelet Volume 8.9 FL (9.6-12.0); Monocytes % 1.8 % (1.7-12.7); NRBC # 0.03 10*3/uL; Neutrophils % 87.3 % (38.7-73.9); Platelet Count 521 T/CUMM (130-400); Red Cell Distribution Width 17.6 % (9.3-17.3); White Blood Count 8.4 T/CUMM (4-12)
[2021-01-09 05:55] LABS: Calcium 9.2 MG/DL (8.5-10.1); Potassium 3.9 MMOL/L (3.5-5.1)
[2021-01-09 06:06] LABS: Risk Ratio 1.79; VLDL Cholesterol 15.8 MG/DL
[2021-01-09] MEDS: INSULIN LISPRO 100 UNIT/ML SUBCUT SCH ×4 (08:29→23:17)
[2021-01-09] MEDS: guaiFENesin/DM ER 600-30 MG TABLET PO SCH ×2 (08:32→20:56)
[2021-01-09] MEDS: methylPREDNISolone SOD SUC 40 MG/1 ML VIAL IV SCH ×2 (08:32→20:57)
[2021-01-09] MEDS: amLODIPine 5 MG TABLET PO SCH (08:33)
[2021-01-09] MEDS: POTASSIUM CHLORIDE 20 MEQ TABLET PO SCH (08:33)
[2021-01-09] MEDS: PANTOPRAZOLE 40 MG TABLET PO SCH (08:33)
[2021-01-09] MEDS: LEVOFLOXACIN INJ 500 MG/100 ML PREMIX IV SCH (15:39)
[2021-01-09] MEDS ORDERED: GLUCAGON 1 MG VIAL IM PRN (16:42)
[2021-01-09] MEDS ORDERED: DEXTROSE 50% 25 GM/50 ML VIAL IV PRN (16:42)
[2021-01-09] MEDS ORDERED: hydrOXYzine HCL 10 MG TABLET PO ONE (18:10)
[2021-01-09] MEDS: DONEPEZIL 10 MG TABLET PO SCH (20:57)
[2021-01-09] MEDS: SIMVASTATIN 20 MG TABLET PO SCH (20:57)
[2021-01-09] MEDS: clonazePAM 0.5 MG TABLET PO SCH (20:57)
[2021-01-09] MEDS: CEFEPIME 1,000 MG in SODIUM CHLORIDE 0.9% 100 ML IV SCH (20:58)
[2021-01-10] MEDS: ALBUTEROL/IPRATROPIUM 3 ML NEB RESP TX SCH ×4 (00:25→19:35)
[2021-01-10] MEDS: CEFEPIME 1,000 MG in SODIUM CHLORIDE 0.9% 100 ML IV SCH ×3 (04:37→20:46)
[2021-01-10 05:13] LABS: Hematocrit 22.5 VOL% (35.7-47.0); Immature Granulocytes % 1.2 %; Immature Granulocytes Absolute 0.14 #; Lymphocytes # 0.3 10*3/uL (1.4-4.0); Lymphocytes % 2.9 % (21.3-54.2); Mean Corpuscular HGB Conc 31.1 GM/DL (32-36); Mean Corpuscular Volume 84.3 FL (87-102); Mean Platelet Volume 8.8 FL (9.6-12.0); Monocytes % 2.6 % (1.7-12.7); NRBC # 0.02 10*3/uL; Neutrophils % 93.3 % (38.7-73.9); Red Blood Count 2.67 MC/CUMM (3.8-5.5); Red Cell Distribution Width 18.3 % (9.3-17.3)
[2021-01-10 05:23] LABS: Platelet Count 390 T/CUMM (130-400); White Blood Count 11.9 T/CUMM (4-12)
[2021-01-10 05:30] LABS: Hypochromasia 1+; Lymphocytes 5 % (20-55); Microcytosis 1+; Nucleated Red Blood Cells 1 (0-5); Platelet Estimate Adequate; Segmented Neutrophils 95 % (50-85); Total Cells Counted 100
[2021-01-10] MEDS ORDERED: ERGOCALCIFEROL 50,000 UNIT CAPSULE PO SCH (09:00)
[2021-01-10] MEDS: MONTELUKAST 10 MG TABLET PO SCH (09:16)
[2021-01-10] MEDS: PRIMIDONE 50 MG TABLET PO SCH (09:16)
[2021-01-10] MEDS: PANTOPRAZOLE 40 MG TABLET PO SCH (09:16)
[2021-01-10] MEDS: INSULIN LISPRO 100 UNIT/ML SUBCUT SCH ×4 (09:16→20:35)
[2021-01-10] MEDS: FUROSEMIDE 20 MG TABLET PO SCH (09:16)
[2021-01-10] MEDS: amLODIPine 5 MG TABLET PO SCH (09:16)
[2021-01-10] MEDS: guaiFENesin/DM ER 600-30 MG TABLET PO SCH ×2 (09:17→20:35)
[2021-01-10] MEDS: POTASSIUM CHLORIDE 20 MEQ TABLET PO SCH (09:17)
[2021-01-10] MEDS: clonazePAM 0.5 MG TABLET PO SCH ×2 (09:17→20:35)
[2021-01-10] MEDS: methylPREDNISolone SOD SUC 40 MG/1 ML VIAL IV SCH ×2 (09:20→20:41)
[2021-01-10] MEDS: THEOPHYLLINE ER (24 HR) 200 MG CAPSULE PO SCH (09:24)
[2021-01-10] MEDS ORDERED: SODIUM CHLORIDE 0.9% 1,000 ML IV PRN (10:23)
[2021-01-10] MEDS: LEVOFLOXACIN INJ 500 MG/100 ML PREMIX IV SCH (17:14)
[2021-01-10] MEDS: SIMVASTATIN 20 MG TABLET PO SCH (20:35)
[2021-01-10] MEDS: DONEPEZIL 10 MG TABLET PO SCH (20:35)
[2021-01-11] MEDS: ALBUTEROL/IPRATROPIUM 3 ML NEB RESP TX SCH ×5 (00:53→21:00)
[2021-01-11] MEDS: CEFEPIME 1,000 MG in SODIUM CHLORIDE 0.9% 100 ML IV SCH ×3 (04:28→23:32)
[2021-01-11 05:44] LABS: Basophils % 0.2 % (0.0-0.8); Hematocrit 27.7 VOL% (35.7-47.0); Immature Granulocytes Absolute 0.22 #; Lymphocytes # 0.3 10*3/uL (1.4-4.0); Lymphocytes % 2.8 % (21.3-54.2); Mean Corpuscular Volume 82.9 FL (87-102); Mean Platelet Volume 8.5 FL (9.6-12.0); Monocytes % 4.2 % (1.7-12.7); NRBC # 0.03 10*3/uL; Neutrophils % 90.8 % (38.7-73.9); Platelet Count 373 T/CUMM (130-400); Red Cell Distribution Width 18.9 % (9.3-17.3)
[2021-01-11 05:52] LABS: Hemoglobin 8.6 GM/DL (12.0-16.0); Red Blood Count 3.34 MC/CUMM (3.8-5.5)
[2021-01-11 06:00] LABS: Calcium 8.6 MG/DL (8.5-10.1); Osmolality,Calculated 276.2 MOS/KG (273-304); Potassium 4.3 MMOL/L (3.5-5.1)
[2021-01-11 06:05] LABS: Folate 8.74 NG/ML (5.38-24.0); Vitamin B12 223 PG/ML (211-911)
[2021-01-11 06:08] LABS: Hypochromasia 1+; Lymphocytes 2 % (20-55); Microcytosis 1+; Platelet Estimate Adequate; Segmented Neutrophils 93 % (50-85); Total Cells Counted 100
[2021-01-11 06:13] LABS: Ferritin 27.1 ng/ml (8-252)
[2021-01-11 06:54] LABS: Sedimentation Rate-Westergren 33 MM/HR (0-30)
[2021-01-11] MEDS: THEOPHYLLINE ER (24 HR) 200 MG CAPSULE PO SCH (10:07)
[2021-01-11] MEDS: INSULIN LISPRO 100 UNIT/ML SUBCUT SCH ×4 (10:07→21:52)
[2021-01-11] MEDS: methylPREDNISolone SOD SUC 40 MG/1 ML VIAL IV SCH ×2 (10:08→21:40)
[2021-01-11] MEDS: POTASSIUM CHLORIDE 20 MEQ TABLET PO SCH (10:08)
[2021-01-11] MEDS: MONTELUKAST 10 MG TABLET PO SCH (10:08)
[2021-01-11] MEDS: amLODIPine 2.5 MG TABLET PO SCH (10:08)
[2021-01-11] MEDS: PRIMIDONE 50 MG TABLET PO SCH (10:08)
[2021-01-11] MEDS: clonazePAM 0.5 MG TABLET PO SCH ×2 (10:08→22:28)
[2021-01-11] MEDS: FUROSEMIDE 20 MG TABLET PO SCH (10:08)
[2021-01-11] MEDS: guaiFENesin/DM ER 600-30 MG TABLET PO SCH ×2 (10:08→21:40)
[2021-01-11] MEDS: PANTOPRAZOLE 40 MG TABLET PO SCH (10:08)
[2021-01-11 10:33] LABS: Hemoglobin A1 (Alkaline) 97.7 % (96.5-98.5); Hemoglobin A2 (Alkaline) 2.3 % (1.5-3.5)
[2021-01-11] MEDS ORDERED: CYANOCOBALAMIN 1000 MCG/1 ML VIAL IM SCH (13:00)
[2021-01-11] MEDS: FERROUS GLUCONATE 240 MG TABLET PO SCH ×2 (17:59→21:40)
[2021-01-11] MEDS: LEVOFLOXACIN INJ 500 MG/100 ML PREMIX IV SCH (17:59)
[2021-01-11] MEDS ORDERED: LEVOFLOXACIN INJ 500 MG/100 ML PREMIX IV SCH (18:00)
[2021-01-11] MEDS: DONEPEZIL 10 MG TABLET PO SCH (21:40)
[2021-01-11] MEDS: SIMVASTATIN 20 MG TABLET PO SCH (21:40)
[2021-01-11] MEDS: POLYETHYLENE GLYCOL POWDER 17 GM PACK PO SCH (21:52)
[2021-01-11] MEDS: DOCUSATE SODIUM 100 MG CAPSULE PO SCH (21:52)
[2021-01-12] MEDS: ALBUTEROL/IPRATROPIUM 3 ML NEB RESP TX SCH ×4 (00:30→18:36)
[2021-01-12 06:07] LABS: Basophils % 0.1 % (0.0-0.8); Hematocrit 27.2 VOL% (35.7-47.0); Hemoglobin 8.5 GM/DL (12.0-16.0); Immature Granulocytes % 1.9 %; Immature Granulocytes Absolute 0.16 #; Lymphocytes # 0.5 10*3/uL (1.4-4.0); Lymphocytes % 5.5 % (21.3-54.2); Mean Corpuscular HGB Conc 31.3 GM/DL (32-36); Mean Corpuscular Volume 82.2 FL (87-102); Mean Platelet Volume 8.6 FL (9.6-12.0); Monocytes % 5.5 % (1.7-12.7); NRBC # 0.06 10*3/uL; Platelet Count 367 T/CUMM (130-400); Red Blood Count 3.31 MC/CUMM (3.8-5.5); Red Cell Distribution Width 18.5 % (9.3-17.3); White Blood Count 8.2 T/CUMM (4-12)
[2021-01-12 06:27] LABS: Calcium 8.2 MG/DL (8.5-10.1); Osmolality,Calculated 271.2 MOS/KG (273-304); Potassium 3.6 MMOL/L (3.5-5.1)
[2021-01-12] MEDS: INSULIN LISPRO 100 UNIT/ML SUBCUT SCH ×4 (06:35→22:10)
[2021-01-12] MEDS ORDERED: ZINC OXIDE PASTE 113 GM TUBE TOP PRN (07:53)
[2021-01-12] MEDS: DOCUSATE SODIUM 100 MG CAPSULE PO SCH (09:46)
[2021-01-12] MEDS: POLYETHYLENE GLYCOL POWDER 17 GM PACK PO SCH (09:50)
[2021-01-12] MEDS: methylPREDNISolone SOD SUC 40 MG/1 ML VIAL IV SCH ×2 (10:05→22:04)
[2021-01-12] MEDS: MONTELUKAST 10 MG TABLET PO SCH (10:07)
[2021-01-12] MEDS: THEOPHYLLINE ER (24 HR) 200 MG CAPSULE PO SCH (10:08)
[2021-01-12] MEDS: amLODIPine 2.5 MG TABLET PO SCH (10:08)
[2021-01-12] MEDS: POTASSIUM CHLORIDE 20 MEQ TABLET PO SCH (10:08)
[2021-01-12] MEDS: PRIMIDONE 50 MG TABLET PO SCH (10:09)
[2021-01-12] MEDS: guaiFENesin/DM ER 600-30 MG TABLET PO SCH ×2 (10:09→22:03)
[2021-01-12] MEDS: FERROUS GLUCONATE 240 MG TABLET PO SCH ×2 (10:09→22:03)
[2021-01-12] MEDS: PANTOPRAZOLE 40 MG TABLET PO SCH (10:10)
[2021-01-12] MEDS: LOPERAMIDE 2 MG CAPSULE PO PRN (10:10)
[2021-01-12] MEDS: FUROSEMIDE 20 MG TABLET PO SCH (10:35)
[2021-01-12] MEDS: CEFEPIME 1,000 MG in SODIUM CHLORIDE 0.9% 100 ML IV SCH (10:39)
[2021-01-12] MEDS: cefTRIAXone 1,000 MG in SODIUM CHLORIDE 0.9% 100 ML IV SCH (10:50)
[2021-01-12] MEDS: clonazePAM 0.5 MG TABLET PO SCH ×2 (11:20→22:04)
[2021-01-12] MEDS: traZODone 50 MG TABLET PO PRN (22:02)
[2021-01-12] MEDS: DONEPEZIL 10 MG TABLET PO SCH (22:02)
[2021-01-12] MEDS: SIMVASTATIN 20 MG TABLET PO SCH (22:03)
[2021-01-12] MEDS: MECLIZINE 25 MG TABLET PO PRN (22:03)
[2021-01-13] MEDS: ALBUTEROL/IPRATROPIUM 3 ML NEB RESP TX SCH ×4 (00:49→20:00)
[2021-01-13 04:37] LABS: Basophils % 0.2 % (0.0-0.8); Hematocrit 28.3 VOL% (35.7-47.0); Hemoglobin 8.9 GM/DL (12.0-16.0); Immature Granulocytes % 2.3 %; Immature Granulocytes Absolute 0.13 #; Lymphocytes # 0.4 10*3/uL (1.4-4.0); Lymphocytes % 7.8 % (21.3-54.2); Mean Corpuscular HGB Conc 31.4 GM/DL (32-36); Mean Platelet Volume 8.7 FL (9.6-12.0); Monocytes % 6.5 % (1.7-12.7); NRBC # 0.06 10*3/uL; Neutrophils % 83.2 % (38.7-73.9); Platelet Count 335 T/CUMM (130-400); Red Blood Count 3.45 MC/CUMM (3.8-5.5); Red Cell Distribution Width 18.1 % (9.3-17.3); White Blood Count 5.7 T/CUMM (4-12)
[2021-01-13 05:07] LABS: Osmolality,Calculated 278.7 MOS/KG (273-304); Potassium 3.6 MMOL/L (3.5-5.1)
[2021-01-13] MEDS: methylPREDNISolone SOD SUC 40 MG/1 ML VIAL IV SCH ×2 (10:19→21:26)
[2021-01-13] MEDS: THEOPHYLLINE ER (24 HR) 200 MG CAPSULE PO SCH (10:20)
[2021-01-13] MEDS: MONTELUKAST 10 MG TABLET PO SCH (10:21)
[2021-01-13] MEDS: guaiFENesin/DM ER 600-30 MG TABLET PO SCH ×2 (10:21→21:33)
[2021-01-13] MEDS: amLODIPine 2.5 MG TABLET PO SCH (10:21)
[2021-01-13] MEDS: PRIMIDONE 50 MG TABLET PO SCH (10:22)
[2021-01-13] MEDS: clonazePAM 0.5 MG TABLET PO SCH ×2 (10:22→21:24)
[2021-01-13] MEDS: FUROSEMIDE 20 MG TABLET PO SCH ×2 (10:22→16:24)
[2021-01-13] MEDS: POTASSIUM CHLORIDE 20 MEQ TABLET PO SCH (10:23)
[2021-01-13] MEDS: MECLIZINE 25 MG TABLET PO PRN ×2 (10:24→21:28)
[2021-01-13] MEDS: FERROUS GLUCONATE 240 MG TABLET PO SCH ×2 (10:24→21:25)
[2021-01-13] MEDS: PANTOPRAZOLE 40 MG TABLET PO SCH (10:36)
[2021-01-13] MEDS: cefTRIAXone 1,000 MG in SODIUM CHLORIDE 0.9% 100 ML IV SCH (10:37)
[2021-01-13] MEDS: INSULIN LISPRO 100 UNIT/ML SUBCUT SCH ×4 (10:43→21:25)
[2021-01-13] MEDS: ACETYLCYSTEINE 600 MG CAPSULE PO SCH ×2 (12:50→21:24)
[2021-01-13] MEDS: LOPERAMIDE 2 MG CAPSULE PO PRN (16:24)
[2021-01-13] MEDS: DONEPEZIL 10 MG TABLET PO SCH (21:24)
[2021-01-13] MEDS: SIMVASTATIN 20 MG TABLET PO SCH (21:25)
[2021-01-13] MEDS: traZODone 50 MG TABLET PO PRN (21:28)
[2021-01-14] MEDS: ALBUTEROL/IPRATROPIUM 3 ML NEB RESP TX SCH ×3 (00:54→13:13)
[2021-01-14 06:58] LABS: Basophils % 0.2 % (0.0-0.8); Hematocrit 28.9 VOL% (35.7-47.0); Immature Granulocytes Absolute 0.19 #; Lymphocytes # 0.6 10*3/uL (1.4-4.0); Lymphocytes % 9.9 % (21.3-54.2); Mean Corpuscular HGB Conc 31.1 GM/DL (32-36); Mean Corpuscular Volume 81.9 FL (87-102); Mean Platelet Volume 8.5 FL (9.6-12.0); Monocytes % 6.2 % (1.7-12.7); NRBC # 0.04 10*3/uL; Neutrophils % 80.7 % (38.7-73.9); Platelet Count 295 T/CUMM (130-400); Red Blood Count 3.53 MC/CUMM (3.8-5.5); Red Cell Distribution Width 17.9 % (9.3-17.3); White Blood Count 6.3 T/CUMM (4-12)
[2021-01-14 07:13] LABS: Calcium 8.1 MG/DL (8.5-10.1); Osmolality,Calculated 274.1 MOS/KG (273-304)
[2021-01-14] MEDS: FUROSEMIDE 20 MG TABLET PO SCH ×2 (07:44→16:30)
[2021-01-14] MEDS: INSULIN LISPRO 100 UNIT/ML SUBCUT SCH ×3 (08:00→16:40)
[2021-01-14] MEDS: POTASSIUM CHLORIDE 20 MEQ TABLET PO SCH (09:17)
[2021-01-14] MEDS: PRIMIDONE 50 MG TABLET PO SCH (09:17)
[2021-01-14] MEDS: MONTELUKAST 10 MG TABLET PO SCH (09:17)
[2021-01-14] MEDS: ACETYLCYSTEINE 600 MG CAPSULE PO SCH (09:18)
[2021-01-14] MEDS: PANTOPRAZOLE 40 MG TABLET PO SCH (09:18)
[2021-01-14] MEDS: clonazePAM 0.5 MG TABLET PO SCH (09:18)
[2021-01-14] MEDS: guaiFENesin/DM ER 600-30 MG TABLET PO SCH (09:19)
[2021-01-14] MEDS: FERROUS GLUCONATE 240 MG TABLET PO SCH (09:19)
[2021-01-14] MEDS: THEOPHYLLINE ER (24 HR) 200 MG CAPSULE PO SCH (09:19)
[2021-01-14] MEDS: amLODIPine 2.5 MG TABLET PO SCH (09:19)
[2021-01-14] MEDS: methylPREDNISolone SOD SUC 40 MG/1 ML VIAL IV SCH (09:20)
[2021-01-14] MEDS: cefTRIAXone 1,000 MG in SODIUM CHLORIDE 0.9% 100 ML IV SCH (10:45)
[2021-01-14 12:06] VITALS: BP 152/72
[2021-01-14] MEDS ORDERED: cephALEXin 500 MG CAPSULE PO SCH (18:00)
[2021-01-15] MEDS ORDERED: predniSONE 10 MG TABLET PO SCH (09:00)
== END 2021-01-14 17:25 | disposition home health service (06) | DRG 190 ==
LOC: EDBD → EDUNIT# → N.ED 09:53 → N.EDINP 13:30 → N.4E 14:03 → N.OB 01-11 17:03
PROVIDERS: ADMIT Hospitalist; ATTEND Hospitalist